=== PATIENT | male | born 1990 | race Two or more races ===

== ENCOUNTER 2016-05-07 03:31 | Inpatient (IN) | payer OTHER ==
[2016-05-07] VITALS (12 sets, daily range): BP systolic 112–134; BP diastolic 57–86
[~2016-05-07] VITALS: Ht 180.3 cm; Wt 108.0 kg
--- NOTE | 2016-05-07 10:25 | NUR ---
m/s travel registered nurse icu: admission direct admit this 26 yr old male pt from [place] via gurney accompanied by 2 ambulance crew. awake, a/ox4. c/o 3/10 abdominal discomfort, but tolerable. oriented to room and surroundings. vss, afebrile. paged dr. sanchez re: direct admit. no apparent distress noted. will continue to monitor.
--- NOTE | 2016-05-07 11:08 | NUR ---
m/s program strategist: notes received new order to call dr. carias (surgeon) for consult. order carried out and acknowledged.
--- NOTE | 2016-05-07 11:20 | NUR ---
m/s environmental health safety manager: notes called dr. carias's office to spoke to asael (metal expediter) and informed her of consult and will relay message to .
--- NOTE | 2016-05-07 11:25 | NUR ---
m/s dialysis nurse: notes noted with no disc sent by [facility]. f/u to [facility], spoke to sarah and aware and confirmed that there is no disc sent, but only result was given. pt made aware and will try to call family if they can warehouse order picker the disk. per sarah, if family is unable, will send a transport. will continue to monitor.
--- NOTE | 2016-05-07 12:00 | NUR ---
m/s low heel builder: md visit seen and examined by dr. sanchez at this time. remains npo. will continue to monitor.
--- NOTE | 2016-05-07 12:38 | NUR ---
m/s manager store: notes dr. carias called with order to get consent for laparoscopic appendectomy, possible open and keep the npo. order read back.
--- NOTE | 2016-05-07 13:00 | NUR ---
m/s parking meter attendant: notes consent obtained from pt for laparoscopic appendectomy, possible open. order read back and carried out and acknowledged. pt verbalized understanding re: procedure, anesthesia, and blood transfusion.
--- NOTE | 2016-05-07 13:24 | NUR ---
m/s hvac r tech: notes family visiting and brought a disc from [facility]. place disc in chart. pt remains npo. will continue to monitor.
[2016-05-07] MEDS ORDERED: IV NS 0.9% 1,000 ML IV PRN (13:39)
[2016-05-07] MEDS ORDERED: IV SET PRIMARY PUMP SET 1 EA INFUS.SET MC ONE ×2 (13:58→22:45)
[2016-05-07] MEDS ORDERED: ONDANSETRON HCL/PF 4 MG/2 ML VIAL IVP PRN (14:00)
[2016-05-07] MEDS ORDERED: ACETAMINOPHEN 325 MG TABLET PO PRN (14:00)
[2016-05-07] MEDS ORDERED: MORPHINE SULFATE INJ 2 MG/ML DISP.SYRIN IV PRN ×2 (14:00→19:00)
[2016-05-07] MEDS ORDERED: ZOLPIDEM TARTRATE 5 MG TABLET PO PRN ×2 (14:00→19:00)
[2016-05-07 14:40] LABS: INR 0.96 (0.87-1.13); PROTHROMBIN TIME 10.2 SECS (9.5-12.7)
--- NOTE | 2016-05-07 15:00 | NUR ---
m/s community product specialist: notes pt resting comfortable with no distress noted. will monitor. remains npo, awaiting for sx this evening.
--- NOTE | 2016-05-07 17:00 | NUR ---
m/s special education professional: notes down to o.r. at this time accompanied by o.r. team via bed.
[2016-05-07] MEDS ORDERED: MIDAZOLAM HCL 2 MG/2ML VIAL ONE (17:15)
[2016-05-07] MEDS ORDERED: FENTANYL PF 100MCG/2ML AMPUL ONE ×2 (17:16→17:17)
[2016-05-07] MEDS ORDERED: ROCURONIUM BROMIDE 50 MG/5 ML ONE (17:16)
[2016-05-07] MEDS ORDERED: BUPIVACAINE MPF W/EPI 0.25% 30 ML VIAL ONE (18:19)
[2016-05-07] MEDS ORDERED: ANESTHESIA TRAY IN PYXIS 1 EA TRAY MC ONE (18:19)
--- NOTE | 2016-05-07 18:48 | NUR ---
m/s conditioner tumbler operator: notes received pt from [facility] with dx: s/p laparoscopic appendectomy. pt has 3 band-aid on the stomach with no active bleeding noted. clear liquid diet ordered, may advance as tolerated. orders faxed already by recovery nurse. awaiting for new ivf of d 5 1/2 ns with 20meq kcl at 60ml/hr. no c/o pain or any discomfort. instructed to call for assistance. will continue to monitor.
[2016-05-07] MEDS ORDERED: MORPHINE SULFATE INJ 4 MG/ML DISP.SYRIN IV PRN (19:00)
[2016-05-07] MEDS ORDERED: IV D5/0.45 NACL W/20 MEQ KCL 1L IV PRN ×2 (19:00)
[2016-05-07] MEDS ORDERED: HYDROCODONE/APAP 5/325MG 1 EACH TABLET PO PRN ×2 (19:00)
--- NOTE | 2016-05-07 19:15 | NUR ---
MS RN NOTES RECEIVED PT IN BED, AWAKE, A/O X 4. ABLE TO VERBALIZE NEEDS. NO ACUTE DISTRESS , NO SOB NOTED. RESPIRATION IS EVEN AND UNLABORED. IV H/L ON RIGHT AC INTACT AND PATENT, NO S/S OF INFILTRATION NOTED. PT DENIES ANY PAIN OR DISCOMFORT AT THIS TIME. SURGICAL SITE ON ABDOMEN COVERED WITH 3 BAND AIDS. NO BLEEDING NOTED AT THIS TIME. PLAN OF CARE DISCUSSED WITH THE PT , VERBALIZED UNDERSTANDING. ALL NEEDS AT THIS TIME ATTENDED AND MET. KEPT COMFORTABLE. CALL LIGHT WITHIN REACH. SAFETY PRECAUTIONS OBSERVED. WILL CONTINUE TO MONITOR.
[2016-05-07] MEDS ORDERED: SECONDARY IV SET 1 EA INFUS.SET MC ONE (22:45)
--- NOTE | 2016-05-08 02:51 | NUR ---
MS RN NOTES PT ASLEEP AT THIS TIME. NO ACUTE DISTRESS, NO SOB NOTED . DENIES ANY PAIN OR DISCOMFORT AT THIS TIME. CALL LIGHT WITHIN REACH. WILL CONT TO MONITOR
[2016-05-08] MEDS ORDERED: ANCEF 1 GM/50 ML D5W IV SCH ×2 (03:00)
--- NOTE | 2016-05-08 04:34 | NUR ---
PT CURRENTLY ON CLEAR LIQUID DIET [facility] WELL ,RECEIVED AN ORDER FROM DR. GODFREY TO ADVANCE DIET TO FULL LIQUID, WITH N.O NOTED AND CARRIED OUT. WILL CONT TO MONITOR PT
--- NOTE | 2016-05-08 06:49 | NUR ---
MS RN NOTES PT IN BED, RESTING COMFORTABLY A/O X 4. ABLE TO VERBALIZE NEEDS. NO ACUTE DISTRESS , NO SOB NOTED. RESPIRATION IS EVEN AND UNLABORED. STABLE AT THIS TIME. IV H/L ON RIGHT AC INTACT AND PATENT, NO S/S OF INFILTRATION NOTED. PT DENIES ANY PAIN OR DISCOMFORT AT THIS TIME. SURGICAL SITE WITH NO BLEEDING AT THIS TIME. ALL NEEDS ATTENDED AND MET. KEPT COMFORTABLE. CALL LIGHT WITHIN REACH. SAFETY PRECAUTIONS OBSERVED. WILL ENDORSE TO NEXT SHIFT FOR JACQUELIN
--- NOTE | 2016-05-08 07:20 | NUR ---
ms rn initial notes Received patient in bed, awake, head of bed elevated, no SOB or distress noted. On room air and tolerated well. Alert and oriented x 4, verbally responsive and able to make needs known. IV intact and patent with IVF infusing well. Kept patient clean and comfortable in bed, call light with in patient reach, will continue to monitor accordingly.
[2016-05-08 07:33] LABS: ALBUMIN 3.5 g/dL (3.4-5.0); BILIRUBIN,TOTAL 1.3 mg/dL (0.2-1.0); CALCIUM, SERUM 8.9 mg/dL (8.5-10.1); CREATININE 0.9 mg/dL (0.6-1.3); MAGNESIUM 1.9 mg/dL (1.8-2.4); PHOSPHORUS 3.7 mg/dL (2.5-4.9); POTASSIUM 3.8 mmol/L (3.5-5.1); TOTAL PROTEIN, SERUM 7.1 g/dL (6.4-8.2)
[2016-05-08 07:34] LABS: BASOPHILS % (AUTO) 0.3 % (0.0-2.0); HEMATOCRIT 40 % (39-51); HEMOGLOBIN 13.5 g/dL (13.5-17.5); LYMPHOCYTES # (AUTO) 1.6 /CMM (0.8-4.8); LYMPHOCYTES % (AUTO) 14.3 % (20.0-44.0); MEAN CORPUSCULAR HEMOGLOBIN 30 PG (26.0-33.0); MEAN CORPUSCULAR HGB CONC 34 g/dl (31.0-36.0); MEAN CORPUSCULAR VOLUME 90 fL (80-96); MONOCYTES # (AUTO) 0.7 /CMM (0.1-1.30); NEUTROPHILS # (AUTO) 8.7 /CMM (1.8-8.9); NEUTROPHILS % (AUTO) 79.4 % (43.0-81.0); PLATELET COUNT (AUTO) 181 /CMM (150-450); RDW COEFFICIENT OF VARIATION 11.6 (11.5-15.0); RED BLOOD CELL COUNT(AUTO) 4.44 MIL/uL (4.5-6.0)
[2016-05-08 08:00] VITALS: BP 114/62
--- NOTE | 2016-05-08 12:05 | NUR ---
ms rn staffing notes Discharge instructions given to patient and able to understand instructions. Prescription given, health teaching and education initiated. Patient is alert and oriented. Dr. Ramirez and Jolie SHEETMETAL TRADES WORKER ordered for discharge. Discontinued IV and pressured applied to prevent bleeding. Patient dad came to greens picker the patient. Skin intact. Pneumonia and flu vaccine not given, due to patient is <65 years old and refused flu vaccine. Explained the risk and benefits x 3 and still refused. Patient left the hospital in stable condition via ambulatory, no complaint of pain or discomfort, nor chest pain. MD and charge nurse aware.
== END 2016-05-08 12:00 | disposition home or self-care (01) | DRG 225 ==
LOC: MED 10:14
PROVIDERS: ADMIT Family Medicine; ATTEND Family Medicine
PROC: 0DTJ4ZZ Resection of Appendix, Percutaneous Endoscopic Approach (ICD-10-PCS; principal; 2016-05-07 17:00)
DX: K35.80 Unspecified acute appendicitis (principal)
CPT/HCPCS: 36415; 80053-TC; 83735-TC; 84100-TC; 85025-TC; 85730-TC; 87070-TC; 87075-TC; 87081-TC; 87186-TC; J0690; J2250; J3010; J3480; J3490; J7030; J7060